=== PATIENT | female | born 1950 | race Hispanic/Latino ===

== ENCOUNTER 2018-10-03 16:33 | Emergency (ER) | payer OTHER ==
[2018-10-03] MEDS ORDERED: ONDANSETRON HCL 4 MG/2 ML VIAL ONE (17:26)
[2018-10-03] MEDS ORDERED: SODIUM CHLORIDE 0.9% 1000ML 1,000 ML IV ONE (17:27)
[2018-10-03 17:43] LABS: BASOPHILS % (AUTO) 0.5 % (0.0-5.0); EOSINOPHILS % (AUTO) 0.5 % (0.0-8.0); HEMATOCRIT 40.4 % (36-48); LYMPHOCYTES % (AUTO) 13.8 % (21.0-51.0); MEAN CORPUSCULAR HEMOGLOBIN 30.2 pg (27.0-33.0); MEAN CORPUSCULAR HGB CONC 33.2 g/dL (32.0-36.0); MEAN CORPUSCULAR VOLUME 90.8 fL (79-99); MONOCYTES % (AUTO) 4.6 % (3.0-13.0); NEUTROPHILS % (AUTO) 80.6 % (40.0-77.0); PLATELET COUNT (AUTO) 280 K/uL (130-400); RED BLOOD CELL COUNT(AUTO) 4.45 MIL/uL (4.00-5.50); RED CELL DISTRIBUTION WIDTH 12.8 % (11.0-15.5); WHITE BLOOD COUNT (AUTO) 10.4 K/uL (4.8-10.8)
[2018-10-03 17:52] LABS: CREATININE 0.8 mg/dL (0.5-1.5); POTASSIUM 3.5 mmol/L (3.5-5.1)
[2018-10-03 17:56] LABS: ALBUMIN 3.8 g/dL (3.5-5.0); BILIRUBIN,TOTAL 0.6 mg/dL (0.2-1.0)
[2018-10-03 18:36] LABS: BILIRUBIN,URINE Negative (NEGATIVE); COLOR,URINE Yellow (YELLOW); GLUCOSE, URINE (UA) >=1000 mg/dL (NEGATIVE); KETONES,URINE 40 mg/dL (NEGATIVE); LEUKOCYTE ESTERASE ,URINE Negative (NEGATIVE); NITRATE,URINE Negative (NEGATIVE); OCCULT BLOOD,URINE Negative (NEGATIVE); PH,URINE 7.5 (5.0-8.0); PROTEIN,URINE POS 1+ (NEGATIVE); UROBILINOGEN,URINE 0.2 mg/dL (0.2-1.0)
[2018-10-03 18:38] LABS: APPEARANCE,URINE HAZY (CLEAR)
[2018-10-03 19:04] LABS: BACTERIA,URINE Few /HPF (None Seen); MUCUS,URINE Few LPF (None Seen); RBC,URINE None Seen /HPF (0-1); SQUAMOUS EPITHELIAL CELL,UR 0-2 /HPF (0-2); WBC,URINE None Seen /HPF (0-1)
== END 2018-10-03 20:03 | disposition home or self-care (01) ==
LOC: EDH 16:33
DX: R11.2 Nausea with vomiting, unspecified (principal); R19.7 Diarrhea, unspecified; I10 Essential (primary) hypertension; Z88.8 Allergy status to other drugs, medicaments and biological substances
CPT/HCPCS: 36415; 74176; 80053; 81001; 83690; 85025; 96361; 96374; 99284; J2405; J7030

== ENCOUNTER 2023-04-07 16:36 | Emergency (ER) | payer OTHER ==
[~2023-04-07] VITALS: Ht 162.6 cm; Wt 72.6 kg
[2023-04-07 20:35] VITALS: BP 148/88; PULSE 88; RESP 18; O2SAT 98
[2023-04-07] MEDS ORDERED: IBUP-1493 PO (20:42)
== END 2023-04-07 21:13 | disposition home or self-care (01) ==
LOC: EDH 16:36
DX: S80.02XA Contusion of left knee, initial encounter (principal); M17.12 Unilateral primary osteoarthritis, left knee; I10 Essential (primary) hypertension; E78.00 Pure hypercholesterolemia, unspecified; Z90.49 Acquired absence of other specified parts of digestive tract; Z88.8 Allergy status to other drugs, medicaments and biological substances; W18.09XA Striking against other object with subsequent fall, initial encounter; Y93.89 Activity, other specified; Y92.89 Other specified places as the place of occurrence of the external cause; Y99.8 Other external cause status
CPT/HCPCS: 73562